=== PATIENT | male | born 1940 | race Caucasian/White ===

== ENCOUNTER → 2016-05-30 | Outpatient (CLI) | payer MEDICARE, BC ==
[2014-01-15 18:59] VITALS: BP 129/75
[~2016-05-30] MED LIST: ATOR20TA58 PO; CALCIUM PO; CHOL10003 PO; DEXL60CA PO; DOCU50CA9 PO; FOLI1TAB16 PO; FURO80TA3 PO; LEVO150T5 PO; NIAC1000 PO; OLME40TA PO; OMEG1CAP2 PO; POTA10CA PO; REGADENOSON 0.4 MG/5 ML DISP.SYRIN. IV ONE; VITAMIN D PO; vitamin b6 PO
--- NOTE | 2016-05-30 13:17 | RAD ---
APPROVED REPORT Test Type: Exercise Stress Nurse/Tech: Angela Arroyo R.N. Test Indications: chest pain Cardiac History: htn, dm Medications: see attached copy Resting ECG: sr with pvcs Resting Heart Rate: 65 bpm Resting Blood Pressure: 191/79mmHg Pretest Chest Pain: No chest pain Nurse/Tech Notes lungs cta, heart tones irregular, good pulses Consent: The procedure was explained to the patient in lay terms. Informed consent was witnessed. [place] was entered into [employer]. History and Stress Test performed by Angela Arroyo R.N. Stress Symptoms No chest pain or symptoms. POST EXERCISE Reason for Termination: Reached target heart rate Target HR: Yes Max HR: 146 bpm 101% of Maximum Predicted HR: 144 bpm Exercise duration: 5:01 min:sec, 2 Stage Exercise capacity: 7.0METs Max Blood Pressure: 213/95mmHg Blood Pressure response to exercise: Normal blood pressure response during stress. Heart Rate response to exercise: normal Chest Pain: No. INTERPRETATION Stress EKG Conclusion: The resting EKG showed a sinus rhythm, PVCs and nonspecific ST segment changes . Stress EKG showed no significant changes from baseline. No EKG evidence of stress-induced ischemia. Imaging Protocol IMAGE PROTOCOL: Rest Tc-99m/stress Tc-99m 1 day Rest: Stress: Viability: Radiopharm.Tc99m AhlhzechpKg25f Sestamibi Olrs31kVm 37.7mCi Img Date 05/30/2016 05/30/2016 Inj-Img [id number]. 60min. Rest Admin Site:IV - Right AntecubitalAdministrator:RT Bailee (R)(N) Stress Admin Site: IV - Right AntecubitalAdministrator: LINA Ernst STRESS DATA End Diast. Vol.91.0mlAv. Heart Rate78.0bpm End Syst. Vol.30.0mlCO Index BSA0.0L/min Myocardial Boje623.0gEject. Fdnarhtp83.0% Stress Rates Pk. Fill Rate3.34EDV/secLVtime Pk. Fill 217.85msec Pk. Empty Rate4.13ESV/secLVtime Pk. Rbyzs305.38msec 05/29 Pk. Fill1.12EDV/sec Stress Scores Regional WT0.00Summed WT6.00 Regional WM0.00Summed WM4.00 LV Perfusion The stress scans showed no significant defects. The rest scans showed no significant defects. Nuclear imaging showed no reversible ischemia or infarct. Wall Motion Normal left ventricular systolic function with an ejection fraction of 67%. LV Perf. Quant 17 Seg. SSS1.00 17 Seg. SRS1.00 17 Seg. SDS0.00 Stress Defect Extent (% LAD)0.00Rest Defect Extent (% LAD)0.00Rev. Defect Extent (% LAD)0.00 Stress Defect Extent (% LCX) 0.00Rest Defect Extent (% LCX)0.00Rev. Defect Extent (% LCX)0.00 Stress Defect Extent (% RCA)0.00Rest Defect Extent (% RCA)0.00Rev. Defect Extent (% RCA)0.00 Stress Defect Extent (% CHAU)0.00Rest Defect Extent (% CHAU)0.00Rev. Defect Extent (% CHAU)0.00 Conclusion 1. Good exercise tolerance with the patient walking for 5 minutes and 1 second on a Jose protocol. 2. No chest pain with exertion. 3. No EKG evidence of stress-induced ischemia. 4. Nuclear imaging shows no reversible ischemia or infarct. 5. Normal left ventricular systolic function with an ejection fraction of 67%. 6. Low risk treadmill nuclear stress test.
== END | disposition home or self-care (01) ==
LOC: NM 08:53
PROVIDERS: ATTEND Internal Medicine Cardiovascular Disease
DX: I10 Essential (primary) hypertension (principal); R07.89 Other chest pain
CPT/HCPCS: 78452; 93017; 96374; A9500; 96376

== ENCOUNTER → 2017-04-26 | Day surgery (SDC) | payer MEDICARE, BC ==
[~2017-04-26] MED LIST changes: -ATOR20TA58 PO; -CALCIUM PO; -CHOL10003 PO; -DEXL60CA PO; -DOCU50CA9 PO; -FOLI1TAB16 PO; -FURO80TA3 PO; +HYDROmorphone 2 MG/ML VIAL IV; -LEVO150T5 PO; +LIDOCAINE 1% PF 2 ML VIAL. ID; +LIDOCAINE 2% PF Vial for OR 5 ML VIAL.; +MORPHINE SULFATE 2 MG/ML DISP.SYRIN. IV; -NIAC1000 PO; -OLME40TA PO; -OMEG1CAP2 PO; +ONDANSETRON PF 4 MG/2 ML VIAL. IV; -POTA10CA PO; +PROCHLORPERAZINE 10 MG/2 ML VIAL. IV; +PROPOFOL 20 ML IV; -REGADENOSON 0.4 MG/5 ML DISP.SYRIN. IV ONE; -VITAMIN D PO; +fentaNYL PF VIAL 100 MCG/2 ML VIAL IV; -vitamin b6 PO
[2017-04-26] MEDS: IV RINGERS,LACTATED 1000ML 1,000 ML IV (07:08)
== END | disposition home or self-care (01) ==
LOC: ENDOS 06:32
DX: Z09 Encounter for follow-up examination after completed treatment for conditions other than malignant neoplasm (principal); Z86.010 Personal history of colon polyps; D12.2 Benign neoplasm of ascending colon; K31.7 Polyp of stomach and duodenum; K22.70 Barrett's esophagus without dysplasia; K29.50 Unspecified chronic gastritis without bleeding; D64.0 Hereditary sideroblastic anemia; E78.00 Pure hypercholesterolemia, unspecified; I10 Essential (primary) hypertension; K21.9 Gastro-esophageal reflux disease without esophagitis; E03.9 Hypothyroidism, unspecified; F17.200 Nicotine dependence, unspecified, uncomplicated; Z86.39 Personal history of other endocrine, nutritional and metabolic disease; Z72.0 Tobacco use
CPT/HCPCS: 43239; 88305; J2704

== ENCOUNTER → 2017-06-03 | Outpatient (CLI) | payer MEDICARE, BC ==
[2017-06-03 10:31] LABS: BILIRUBIN,URINE NEGATIVE (NEG); CLARITY,URINE CLEAR; COLOR,URINE YELLOW; GLUCOSE,URINE NEGATIVE (NEG); NITRITE,URINE NEGATIVE (NEG); PH,URINE 7.5; PROTEIN,URINE NEGATIVE (NEG-TRACE); UROBILINOGEN,URINE 0.2 mg/dL (0.2 mg/dL)
[2017-06-03 10:39] LABS: RBC,URINE TNTC /HPF (0-2); WBC,URINE TNTC /HPF (0-4)
[2017-06-03 10:40] LABS: BACTERIA,URINE MODERATE /HPF (0-FEW)
== END | disposition home or self-care (01) ==
LOC: LAB 10:13
DX: R30.0 Dysuria (principal)
CPT/HCPCS: 81001; 87086

== ENCOUNTER → 2017-08-28 | Outpatient (CLI) | payer MEDICARE, BC | END | disposition home or self-care (01) | LOC: RT 08:01 | DX: I49.3 Ventricular premature depolarization (principal); I10 Essential (primary) hypertension; E78.00 Pure hypercholesterolemia, unspecified; R55 Syncope and collapse; Z87.891 Personal history of nicotine dependence | CPT/HCPCS: 95816 ==

== ENCOUNTER → 2017-08-29 | Outpatient (CLI) | payer MEDICARE, BC | END | disposition home or self-care (01) | LOC: KCIC MRI 11:15 | DX: T15.82XA Foreign body in other and multiple parts of external eye, left eye, initial encounter (principal); R55 Syncope and collapse; X58.XXXA Exposure to other specified factors, initial encounter; Y93.89 Activity, other specified; Y92.89 Other specified places as the place of occurrence of the external cause; Y99.8 Other external cause status | CPT/HCPCS: 70030; 70551 ==

== ENCOUNTER → 2021-04-26 | Outpatient (CLI) | payer BC, MEDICARE ==
[2017-04-26 08:38] VITALS: BP 178/84
[~2021-04-26] MED LIST changes: +ATOR20TA58 PO; +CALCIUM PO; +CHOL10003 PO; +DEXL60CA2 PO; +DOCU50CA9 PO; +FOLI1TAB16 PO; +FURO80TA3 PO; -HYDROmorphone 2 MG/ML VIAL IV; +LEVO150T5 PO; -LIDOCAINE 1% PF 2 ML VIAL. ID; -LIDOCAINE 2% PF Vial for OR 5 ML VIAL.; -MORPHINE SULFATE 2 MG/ML DISP.SYRIN. IV; +NIAC1000 PO; +OLME40TA12 PO; +OMEG1CAP2 PO; -ONDANSETRON PF 4 MG/2 ML VIAL. IV; +POTA10TA12 PO; -PROCHLORPERAZINE 10 MG/2 ML VIAL. IV; -PROPOFOL 20 ML IV; +VITAMIN D PO; -fentaNYL PF VIAL 100 MCG/2 ML VIAL IV; +vitamin b6 PO
--- NOTE | 2021-04-26 14:31 | KCIC ---
EXAMINATION: Magnetic resonance imaging (MRI) of the lumbar spine without contrast 04/26/2021 12:46 PM HISTORY: Degenerative disc disease. Radicular pain of the right lower extremity. TECHNIQUE: Multiplanar multi-weighted MRI of the lumbar spine was performed without intravenous contr ast using the standard lumbar spine protocol. Contrast information: None administered. COMPARISON: None available. FINDINGS: There is noninstrumented osseous fusion of T12-L1. There is a inferior endplate compression deformity involving L1 with 50 percent height loss and retropulsion of the superior and inferior endplates. Fi ndings result in at least mild spinal canal stenosis. Conus medullaris terminates at L1. Distal spina l cord signal intensity is normal in all sequences. Modic type I endplate degenerative changes are id entified at L3-L4 with moderate disc height loss. Subcortical cystic changes are identified along the superior and inferior endplates of L4 with minimal height loss. Moderate anterior marginal osteophyt osis. There is no prevertebral edema. Abdominal aorta is normal in caliber. No suspicious retroperito ata abnormality. Visualized portions of the sacrum are intact. T12-L1: There is a posterior osteophyte complex secondary to retropulsion of the superior endplate of L1. Mild facet arthropathy. Mild bilateral neuroforaminal stenosis. Mild spinal canal stenosis. L1-L2: Retropulsion of the inferior endplate of L1 without significant disc herniation. No significan t facet arthropathy. Moderate right and mild left neuroforaminal stenosis. Mild spinal canal stenosis . L2-L3: There is mild disc bulge. Mild facet arthropathy. Mild bilateral neuroforaminal stenosis. Mild spinal canal stenosis. L3-L4: There is a posterior disc osteophyte complex. Moderate facet arthropathy ligamentum flavum inf olding. Severe bilateral neuroforaminal stenosis. Severe spinal canal stenosis. L4-L5: There is a circumferential disc bulge with central disc protrusion. Mild to moderate facet art hropathy ligamentum flavum infolding. Moderate bilateral neuroforaminal stenosis. Moderate spinal can al stenosis with left lateral recess stenosis. There is redundancy of the nerve roots above this leve l. L5-S1: No significant disc herniation. Mild facet arthropathy. No neuroforaminal or spinal canal sten osis. There is a posteriorly projecting synovial cyst arising from the posterior right L5-S1 facet me asuring 0.7 cm. There is a synovial cyst along the spinous processes of L5 measuring 1.2 cm. IMPRESSION: Moderate to advanced degenerative changes of the lumbar spine as described in detail above. Chronic fracture deformity of L1 with inferior endplate compression. There is approximately 50 percen t height loss. There is noncemented osseous fusion of T12-L1. Electronically signed by: Aaliyah John MD (04/26/2021 2:29 PM) [id number]
== END ==
LOC: KCIC MRI 12:31
PROVIDERS: ATTEND Physician Assistant
DX: M47.26 Other spondylosis with radiculopathy, lumbar region (principal); M43.8X6 Other specified deforming dorsopathies, lumbar region; M71.38 Other bursal cyst, other site; M51.26 Other intervertebral disc displacement, lumbar region; M48.8X7 Other specified spondylopathies, lumbosacral region; M48.061 Spinal stenosis, lumbar region without neurogenic claudication; M51.36 Other intervertebral disc degeneration, lumbar region
CPT/HCPCS: 72148

== ENCOUNTER → 2021-05-12 | Outpatient (CLI) | payer MEDICARE ==
[2017-04-26 08:38] VITALS: BP 178/84
--- NOTE | 2021-05-12 12:51 | KCIC ---
CT LOWER RIGHT EXTREMITY WITHOUT CONTRAST History: Osteoarthritis right knee, preop planning. Comparison: CT right knee 05/10/2021. Technique: Noncontrast CT of the right lower extremity with axial images through the right hip, right knee and right ankle. Findings: Osseous mineralization is normal. There is no fracture or dislocation within the visualized segments of the right lower extremity. Mild degenerative changes the right hip including small marginal osteophytes and mild femoral acetabu lar narrowing. Visualized portions of the pelvis demonstrate an enlarged prostate. Sacroiliac joint i s unremarkable. The hip musculature is within normal limits. Right knee demonstrates medial compartment narrowing, subchondral cystic change and osteophyte format ion. Large knee effusion. The extensor mechanism is intact. Normal attenuation and bulk of the knee m usculature. The ankle mortise and talar dome are intact. No significant degenerative changes of the ankle. The Ac hilles, peroneal, flexor and extensor tendons are grossly intact. Impression: 1. Degenerative changes of the right knee greatest in the medial tibiofemoral compartment. ------ Exposure: One or more of the following individualized dose reduction techniques were utilized for thi s examination: 1. Automated exposure control 2. Adjustment of the mA and/or kV according to patient size 3. Use of iterative reconstruction technique. Electronically signed by: John Pa MD (05/12/2021 12:49 PM) [facility]
== END ==
LOC: KCIC CT 10:13
PROVIDERS: ATTEND Orthopaedic Surgery
DX: M17.11 Unilateral primary osteoarthritis, right knee (principal); M25.461 Effusion, right knee; M25.761 Osteophyte, right knee; N40.0 Benign prostatic hyperplasia without lower urinary tract symptoms
CPT/HCPCS: 73700

== ENCOUNTER → 2021-06-19 | Outpatient (CLI) | payer BC, MEDICARE ==
[2017-04-26 08:38] VITALS: BP 178/84
[2021-06-19 09:41] LABS: BASO % 0 % (0-3); EOS # 0.4 x10^3/uL (0.0-0.7); EOS % 7 % (0-3); HEMATOCRIT 46.3 % (39.0-53.0); HEMOGLOBIN 15.3 g/dL (13.0-17.5); LYMPH # 1.4 x10^3/uL (1.0-4.8); LYMPH % 26 % (24-48); MEAN CORPUSCULAR HEMOGLOBIN 29 pg (25-35); MEAN CORPUSCULAR HGB CONC 33 g/dL (31-37); MEAN CORPUSCULAR VOLUME 88 fL (79-100); MONO # 0.3 x10^3/uL (0.0-1.1); MONO % 6 % (0-9); NEUT # 3.3 x10^3/uL (1.8-7.7); NEUT % 61 % (31-73); PLATELET COUNT 182 x10^3/uL (140-400); RED BLOOD COUNT 5.29 x10^6/uL (4.30-5.70); RED CELL DISTRIBUTION WIDTH 13.7 % (11.5-14.5); WHITE BLOOD COUNT 5.4 x10^3/uL (4.0-11.0)
[2021-06-19 09:50] LABS: ALBUMIN 3.7 g/dL (3.4-5.0); CALCIUM 9.5 mg/dL (8.5-10.1); GFR 71.7; POTASSIUM 4.1 mmol/L (3.5-5.1)
--- NOTE | 2021-06-19 12:16 | EKG ---
[facility] [address] [place] [address] Test Date: 2021-06-19 Test Time: 12:16:28 Pat Name: MERYL MCDANIELS Department: Room: Gender: Process Architect: Swapna : 1940 Requested By: SANTIAGO VASQUEZ Order Number: [id number] Reading MD: Giuseppe Newman Measurements Intervals [place]den Rate: 76 P: 47 TN: 238 QRS: -36 QRSD: 82 T: 52 QT: 348 QTc: 395 Interpretive Statements SINUS RHYTHM VENTRICULAR PREMATURE COMPLEX(ES) ATRIAL PREMATURE COMPLEX(ES) PROLONGED TN INTERVAL ABNORMAL LEFT AXIS DEVIATION Electronically Signed On 06-21-2021 16:31:08 EMBRYOLOGY PROFESSOR by Giuseppe Newman
--- NOTE | 2021-06-19 12:47 | RAD ---
EXAM: Chest, 2 views. HISTORY: Hypertension. Preoperative evaluation. COMPARISON: None. FINDINGS: 2 views of chest are obtained. There are nodular opacities overlying the right upper lobe m easuring approximately 2.8 cm and 2.0 cm. There is suspected left basilar atelectasis or scarring. Th e heart is normal in size. There is no pleural effusion or pneumothorax. IMPRESSION: Nodular opacities overlying the right upper lobe. These may be infectious or neoplastic. CT can be performed for better characterization. Electronically signed by: Chelsie Wren MD (06/19/2021 12:45 PM) [id number]
[2021-06-20 03:09] LABS: HEMOGLOBIN A1C 5.2 % (4.8-5.6)
== END ==
LOC: SURGPAT 13:26
PROVIDERS: ATTEND Orthopaedic Surgery
DX: Z01.818 Encounter for other preprocedural examination (principal); M17.11 Unilateral primary osteoarthritis, right knee; R91.8 Other nonspecific abnormal finding of lung field; I49.3 Ventricular premature depolarization
CPT/HCPCS: 36415; 71046; 80048; 82040; 82306; 83036; 85025; 85610; 85651; 85730; 87641; 93005

== ENCOUNTER → 2021-07-14 | Outpatient (CLI) | payer BC ==
[2017-04-26 08:38] VITALS: BP 178/84
== END ==
LOC: LAB 09:54
PROVIDERS: ATTEND Internal Medicine Pulmonary Disease
DX: R93.89 Abnormal findings on diagnostic imaging of other specified body structures (principal)
CPT/HCPCS: 36415; 86481

== ENCOUNTER → 2021-07-21 | Outpatient (CLI) | payer BC ==
[2017-04-26 08:38] VITALS: BP 178/84
[~2021-07-21] MED LIST changes: +ASPI-630 PO; +CRAN500T3 PO; +FINA5TAB4 PO; +GLUC1TAB26 PO; +METF500T16 PO; +MULT-445 PO; +OXYB5TAB10 PO; +PREVAGEN PO; +TADA5TAB PO; +TAMS0.4C97 PO; +[UNRECOGNIZED DRUG - CODE] PO
--- NOTE | 2021-07-21 15:41 | RAD ---
EXAM: PET/CT SKULL BASE THROUGH MID THIGH. HISTORY: Abnormal CT study. Right apical pulmonary mass. TECHNIQUE: CT of the skull base through the mid thighs was performed for the purposes of attenuation correction. 12.3 mCi F-18 fluorodeoxyglucose were administered intravenously. Blood glucose level at the time of administration was 96 mg/dL. After 45 minutes uptake, positron emission tomography of the skull base through the mid thighs was performed. The PET and CT data were fused and interpreted in c ombination on a dedicated workstation. Reported standard uptake values (SUV) are the maximum SUV with in a lesional volumetric region of interest. SUV normalization is via body mass. COMPARISON: CT chest 07/05/2019. FINDINGS: Mediastinal blood pool SUV reference value: SUV max 2.23, SUV mean 1.63. HEAD AND NECK: There is mild focal FDG uptake in the nasopharynx on the right, SUV max 2.87. No discrete underlying mass identified. No other abnormal FDG uptake in the head and neck. No lymphadenopathy. CHEST: There is moderate FDG uptake in the right apical pulmonary mass, SUV max 7.2. No enlarged or FDG avid lymph nodes. There is a calcified granuloma in the left lower lobe. No pleural effusion. Small hiata l hernia. The heart is normal in size. There are coronary artery calcifications. The thoracic aorta i s normal in caliber. ABDOMEN AND PELVIS: Moderate focal FDG uptake in the appendix, FDG max 7.1. The appendix is normal in appearance without evidence of mass or inflammatory changes. There is scattered mild FDG uptake in the ascending colon, SUV max, 4.1. The liver, gallbladder, pancreas, spleen, adrenal glands are normal. There is right nep hrolithiasis. No hydronephrosis. Left kidney is normal. Probable surgical changes of TURP. The prosta te gland is enlarged measuring 4.6 x 5.3 cm. There is moderate calcified aortoiliac atherosclerosis. Small hiatal hernia. Small bowel is unremarkable. No ascites. MUSCULOSKELETAL: No abnormal FDG uptake. The bones are diffusely demineralized. There is an old L1 burst fracture with mild height loss and mild retropulsion there is osseous fusion across the T12-L1 vertebral bodies wi th mild associated kyphosis. There is degenerative disc disease throughout the spine. Somewhat sclero tic appearance of L3 without FDG uptake is likely due to degenerative endplate changes. IMPRESSION: 1. Moderate FDG uptake in the right apical pulmonary mass, suspicious for malignancy. 2. Similar moderate level of FDG uptake in the appendix, which is normal in appearance without clear mass or inflammatory changes. Cannot exclude metastatic disease. 3. Scattered mild FDG uptake in the colon may be physiological related to metformin use. 4. Mild focal FDG uptake in the right nasopharynx is nonspecific. Correlate with direct visualization . 5. Other chronic findings as described. Electronically signed by: Ambreen Smith MD (07/21/2021 3:39 PM) [id number]
== END ==
LOC: PETSC 10:03
PROVIDERS: ATTEND Internal Medicine Pulmonary Disease
DX: R93.89 Abnormal findings on diagnostic imaging of other specified body structures (principal); K44.9 Diaphragmatic hernia without obstruction or gangrene; J84.10 Pulmonary fibrosis, unspecified; N20.0 Calculus of kidney; I25.10 Atherosclerotic heart disease of native coronary artery without angina pectoris; N40.0 Benign prostatic hyperplasia without lower urinary tract symptoms; M81.8 Other osteoporosis without current pathological fracture; M40.292 Other kyphosis, cervical region; Z98.1 Arthrodesis status; M51.36 Other intervertebral disc degeneration, lumbar region; M40.205 Unspecified kyphosis, thoracolumbar region
CPT/HCPCS: 78815; A9552

== ENCOUNTER → 2021-07-26 | Outpatient (CLI) | payer MEDICARE ==
[2017-04-26 08:38] VITALS: BP 178/84
[~2021-07-26] MED LIST changes: +MORPHINE SULFATE 5 MG, KETOROLAC 30MG VIAL 30 MG, ROPIVacaine 0.5% PF 60 ML, EPINEPHrin... INT ART ONE
[2021-07-26 13:29] LABS: BASO % 0 % (0-3); EOS # 0.2 x10^3/uL (0.0-0.7); EOS % 4 % (0-3); HEMATOCRIT 41.9 % (39.0-53.0); HEMOGLOBIN 14.5 g/dL (13.0-17.5); LYMPH # 1.3 x10^3/uL (1.0-4.8); LYMPH % 22 % (24-48); MEAN CORPUSCULAR HEMOGLOBIN 29 pg (25-35); MEAN CORPUSCULAR HGB CONC 35 g/dL (31-37); MEAN CORPUSCULAR VOLUME 84 fL (79-100); MONO # 0.4 x10^3/uL (0.0-1.1); MONO % 6 % (0-9); NEUT # 4.2 x10^3/uL (1.8-7.7); NEUT % 68 % (31-73); PLATELET COUNT 199 x10^3/uL (140-400); RED BLOOD COUNT 5.01 x10^6/uL (4.30-5.70); RED CELL DISTRIBUTION WIDTH 13.4 % (11.5-14.5); WHITE BLOOD COUNT 6.1 x10^3/uL (4.0-11.0)
[2021-07-26 13:39] LABS: PROTHROMBIN TIME PATIENT 13.1 SEC (11.7-14.0)
[2021-07-26 13:48] LABS: ALBUMIN 3.8 g/dL (3.4-5.0); CALCIUM 8.8 mg/dL (8.5-10.1); GFR 71.7
[2021-07-27 04:14] LABS: HEMOGLOBIN A1C 5.4 % (4.8-5.6)
== END ==
LOC: SURGPAT 12:12
PROVIDERS: ATTEND Orthopaedic Surgery
DX: Z01.812 Encounter for preprocedural laboratory examination (principal); M17.11 Unilateral primary osteoarthritis, right knee; Z79.899 Other long term (current) drug therapy
CPT/HCPCS: 36415; 80048; 82040; 83036; 85025; 85610; 85651; 85730; 87641

== ENCOUNTER 2021-08-07 08:16 | Outpatient (CLI) | payer BC, MEDICARE ==
[~2021-08-07] VITALS: Ht 162.6 cm; Wt 72.0 kg
[2021-08-07] VITALS (13 sets, daily range): BP systolic 129–203; BP diastolic 64–91
[~2021-08-07 08:16] MED LIST changes: -MORPHINE SULFATE 5 MG, KETOROLAC 30MG VIAL 30 MG, ROPIVacaine 0.5% PF 60 ML, EPINEPHrin... INT ART ONE; -[UNRECOGNIZED DRUG - CODE] PO
[2021-08-07 08:50] LABS: HEMOGLOBIN 15.2 g/dL (13.0-17.5); RED BLOOD COUNT 5.24 x10^6/uL (4.30-5.70); RED CELL DISTRIBUTION WIDTH 13.8 % (11.5-14.5); WHITE BLOOD COUNT 6.2 x10^3/uL (4.0-11.0)
[2021-08-07] MEDS ORDERED: [UNRECOGNIZED DRUG - CODE] PO (08:53)
[2021-08-07 08:58] LABS: CALCIUM 9.5 mg/dL (8.5-10.1); GFR 71.7; POTASSIUM 4.1 mmol/L (3.5-5.1)
[2021-08-07 09:01] LABS: PROTHROMBIN TIME PATIENT 13.1 SEC (11.7-14.0)
[2021-08-07] MEDS ORDERED: LIDOCAINE WITH 8.4% SOD BICARB 3 ML DISP.SYRIN. ONE (09:36)
[2021-08-07] MEDS ORDERED: fentaNYL PF VIAL 100 MCG/2 ML VIAL ONE (10:11)
[2021-08-07] MEDS ORDERED: MIDAZOLAM HCL/PF 2 MG/2 ML VIAL. ONE (10:11)
[2021-08-07] MEDS ORDERED: fentaNYL PF VIAL 100 MCG/2 ML VIAL IV ONE (11:00)
[2021-08-07] MEDS ORDERED: MIDAZOLAM HCL/PF 2 MG/2 ML VIAL. IV ONE (11:00)
[2021-08-07] MEDS ORDERED: LIDOCAINE WITH 8.4% SOD BICARB 3 ML DISP.SYRIN. IJ ONE (11:00)
--- NOTE | 2021-08-07 13:19 | RAD ---
XR CHEST 1V Clinical Indication: Reason: post R lung biopsy / Spl. Instructions: / History: Comparison: Two-view chest June 19, 2021.. Findings: Atherosclerotic aortic arch. The cardiomediastinal silhouette is normal. Irregular right apical lung mass is redemonstrated. There is minimal bibasilar atelectasis. There is no pneumothorax. No pleural effusion is appreciated. No acute bone abnormality. IMPRESSION: 1. Right apical lung mass. No pneumothorax. 2. Minimal bibasilar atelectasis. Electronically signed by: Hector French MD (08/07/2021 1:17 PM) [id number]
--- NOTE | 2021-08-07 13:32 | NUR ---
Patient taken to private vehicle via wheelchair. Daughter driving. Instructions provided on site care, sedation, procedure. Patient and daughter verbalized understanding. No questions at time of d/c. Patient hypertensive. States he will take his regularly scheduled medications when he arrives home. Has a BP cuff at home, will re-check after taking meds. Instructed to take BP daily, write down, and call PCP if BP remains high. PIV removed. No bleeding at site. Order received from Dr. Hernandez to d/c patient.
--- NOTE | 2021-08-07 16:33 | RAD ---
Procedure: CT-guided biopsy of a right lung mass Clinical Indication: Adult male with right lung mass Sedation: Conscious sedation using a combination of Versed and fentanyl was provided for 27 minutes, including continuous monitoring of the patients heart rate, rhythm, blood pressure, oxygen saturation and level of arousability by a trained independent observer. Sterility: The procedure was performed in its entirety using appropriate elements of sterile techniqu e. Consent: The procedure was explained in its entirety to the patient or the patients designated repres entative by a member of the treatment team, including a discussion of the risks, benefits and commonl y accepted alternatives to the procedure, as well as the expected consequences of not performing the procedure. Discussion of the risks included, but was not limited to, those that are most frequent an d those that are rare but possibly severe or life-threatening, as well as the possibility of unforese en complications. Technique and Findings: Following informed consent, the patient was prepped and draped in usual steri le fashion. Preliminary CT scan of the area of interest was performed. 1 percent lidocaine was used t o achieve local anesthesia. A small dermatotomy was made. Under periodic CT surveillance, a 19-gauge needle guide was advanced towards the target lesion and 4 separate 20-gauge core biopsy specimens wer e obtained and divided between formalin and nonbacteriostatic saline for microbiological analysis. A blood patch was applied as the needle guide was removed and hemostasis was achieved with manual compr ession. Complications: No immediate Impression: 1. CT-guided right apical lung mass biopsy as described. PQRS Compliance Statement: One or more of the following individualized dose reduction techniques were utilized for this examinat ion: 1. Automated exposure control 2. Adjustment of the mA and/or kV according to patient size 3. Use of iterative reconstruction technique Electronically signed by: Guillermo Hernandez MD (08/07/2021 4:31 PM) [id number]
--- NOTE | 2021-08-09 17:07 | PATHOLOGY ---
[facility] Accession Number: [id number] . 01 Material submitted: . lung - RIGHT LUNG MASS. Modifiers: right . 02 Diagnosis: Lung tissue, right lung mass needle biopsies: - ADENOCARCINOMA, LEPIDIC AND ACINAR, LEPIDIC PREDOMINANT. SEE COMMENT. LBQ 08/09/2021 1623 Local . 02 Comment: Sections of the right lung mass needle biopsy reveal lung tissue showing prominent areas of interstitial fibrosis. There are pre-existent alveolar air spaces which are lined by atypical cells having modest amounts of eosinophilic cytoplasm and possessing enlarged, rounded to ovoid pleomorphic nuclei containing prominent nucleoli. There are focal acinar structures lined by similar cells which appear to infiltrate the stroma. The morphologic findings are supportive of the diagnosis of a lepidic and acinar (lepidic predominant) adenocarcinoma. The case is also examined by Dr. Stroud, who concurs with the diagnosis. The results are reported to Dr. Alanis on 08/09/21 at 2:50 PM. (JPM/db; 08/08/2021) . 02 Electronically signed: . Rob Ferraro MD, Pathologist NPI- [id number] . 01 Gross description: . The specimen is received in formalin, labeled "Jose Maria Dias, rt. lung biopsy" and consists of 2 dominguez-dove cylindrical needle core biopsies ranging in length from 1.6 cm to 2.0 cm and each averaging < 0.1 cm in diameter. The specimen is submitted in toto in 2 cassettes.([place]; 08/07/2021) DKA/DKA 08/07/2021 1444 Local . 02 Pathologist provided ICD-10: C34.91 . 02 CPT . 827562 Specimen Comment: A courtesy copy of this report has been sent to [phone] Specimen Comment: Report sent to Performed at: [address] [facility] [address], [place] [id number] MD Bhavik Mcdonald MD Phone: [phone] Performed at: 02 [facility] [address] [place], [place] [id number] MD Rob Ferraro MD Phone: [phone]
== END 2021-08-07 13:30 | disposition home or self-care (01) ==
LOC: INTRAD 08:16
PROVIDERS: ATTEND Internal Medicine Pulmonary Disease
DX: R91.8 Other nonspecific abnormal finding of lung field (principal); J98.11 Atelectasis; I10 Essential (primary) hypertension; E78.00 Pure hypercholesterolemia, unspecified; E11.9 Type 2 diabetes mellitus without complications; E03.9 Hypothyroidism, unspecified; K21.9 Gastro-esophageal reflux disease without esophagitis; Z85.828 Personal history of other malignant neoplasm of skin; Z87.891 Personal history of nicotine dependence; Z79.82 Long term (current) use of aspirin; Z79.84 Long term (current) use of oral hypoglycemic drugs; Z79.899 Other long term (current) drug therapy; Z98.890 Other specified postprocedural states; Z72.89 Other problems related to lifestyle
CPT/HCPCS: 32408; 36415; 71045; 80048; 85027; 85610; 87075; 87102; 99152; 99153; J2250; J3010; J3490

== ENCOUNTER → 2021-09-04 | Outpatient (CLI) | payer BC ==
[2021-08-07 12:45] VITALS: BP 203/91
[~2021-09-04] MED LIST changes: +[UNRECOGNIZED DRUG - CODE] PO
--- NOTE | 2021-09-05 08:44 | RAD ---
CT LIMITED STUDY History: CT of the chest for radiation therapy planning. Removal adenocarcinoma of the right lung. Comparison: PET/CT 07/21/2021 Technique: Noncontrast CT of the chest. Findings: Assessment is limited by lack of IV contrast. Cardiovascular: Moderate aortic calcification. Normal caliber. Small pericardial effusion. Mild to mo derate coronary artery calcification. Normal heart size. Mediastinum and shelbi: Calcified left peribronchial lymph node. No enlarged mediastinal adenopathy. Mi ldly patulous esophagus with small sliding hiatal hernia. Thyroid is unremarkable. Airways, lungs and pleura: There is a spiculated right upper lobe mass measuring 5.2 x 2.3 cm with ex tension towards the hilum along thickened bronchi and small central cavitation versus bronchiectasia. There is a 6 mm nodule right lower lobe along the major fissure which may represent fissural lymph n ode (axial 58). Posterior pleural calcification left lower lobe. Upper abdomen: Mild fatty atrophy of the pancreas. A few small splenules at the splenic hilum. Osseous structures and soft tissues: Multilevel degenerative changes in the spine. Old compression de formity of L1 vertebral body with partial T12-L1 fusion. Prominent marginal osteophytes in the lower thoracic spine. Impression: 1. Irregular spiculated right upper lobe mass consistent with known adenocarcinoma. 2. 6 mm right lower lobe nodule along the major fissure. ------ Exposure: One or more of the following individualized dose reduction techniques were utilized for thi s examination: 1. Automated exposure control 2. Adjustment of the mA and/or kV according to patient size 3. Use of iterative reconstruction technique. Electronically signed by: John Pa MD (09/05/2021 8:42 AM) [id number]
== END ==
LOC: CT 12:32
PROVIDERS: ATTEND Radiology Radiation Oncology
DX: C34.91 Malignant neoplasm of unspecified part of right bronchus or lung (principal); R91.1 Solitary pulmonary nodule; I31.3 Pericardial effusion (noninflammatory); I25.10 Atherosclerotic heart disease of native coronary artery without angina pectoris; I70.0 Atherosclerosis of aorta; K44.9 Diaphragmatic hernia without obstruction or gangrene; K86.89 Other specified diseases of pancreas; D73.89 Other diseases of spleen; M47.819 Spondylosis without myelopathy or radiculopathy, site unspecified; M43.8X6 Other specified deforming dorsopathies, lumbar region; M25.78 Osteophyte, vertebrae
CPT/HCPCS: 76380

== ENCOUNTER → 2021-09-14 | Outpatient (CLI) | payer BC ==
[2021-08-07 12:45] VITALS: BP 203/91
[~2021-09-14] MED LIST changes: +GADOTERATE 7.5 MMOL/15ML VIAL. IVP ONE
[2021-09-14 10:39] LABS: GFR 71.7
--- NOTE | 2021-09-14 13:25 | RAD ---
MRI of the Brain without and with Contrast 09/14/2021 Clinical History: Lung cancer. Technique: Unenhanced T1-weighted sagittal and axial and FLAIR, T2-weighted, gradient echo and diffus ion-weighted axial images of the brain were obtained. After the intravenous administration of 14 cc o f Clariscan, enhanced T1-weighted axial, sagittal and coronal images of the brain were obtained. Findings: Comparison study is dated 08/29/2017. There is generalized parenchymal atrophy. Patchy, confluent and multiple focal areas of abnormally in creased signal intensity are seen within the periventricular and subcortical white matter of both cer ebral hemispheres on the FLAIR and T2-weighted images consistent with areas of small vessel ischemic disease. No acute parenchymal abnormality is seen. No area of abnormal contrast enhancement is noted. No extra -axial fluid collection is seen. There is no MRI evidence of acute ischemia/infarction. Mild mucosal thickening in seen scattered throughout the paranasal sinuses. There are minimal bilater al mastoid effusions. Normal flow voids are seen within the major vascular structures surrounding the brain parenchyma. Impression: No acute parenchymal abnormality is seen. There is no MRI evidence of acute ischemia/infa rction. Electronically signed by: Tonny Kamara MD (09/14/2021 1:22 PM) [id number]
== END ==
LOC: MRI 09:59
PROVIDERS: ATTEND Radiology Radiation Oncology
DX: C34.11 Malignant neoplasm of upper lobe, right bronchus or lung (principal); G31.9 Degenerative disease of nervous system, unspecified
CPT/HCPCS: 36415; 70553; 82565; 84520; A9575